=== PATIENT | male | born 1980 | race African-American/Black ===

== ENCOUNTER 2018-04-03 06:09 | Emergency (ER) | payer BC ==
[~2018-04-03] VITALS: Ht 180.3 cm; Wt 88.5 kg
[2018-04-03 06:13] VITALS: Ht 180.3 cm; Wt 88.5 kg
[2018-04-03 06:50] LABS: BASOPHIL % 1.9 % (0-2); PLATELET COUNT 229 x10^3mcL (130-400); RED CELL DISTRIBUTION WIDTH 13.3 % (11.5-14.5)
[2018-04-03 06:51] LABS: CARBON DIOXIDE 28.4 mmol/L (21-32); CHLORIDE SERUM 104 mmol/L (98-107); CREATININE SERUM 0.9 mg/dL (0.7-1.3); GFR1 > 60 mL/min; GLUCOSE SERUM 103 mg/dL (74-106); POTASSIUM SERUM 4.1 mmol/L (3.5-5.1); SODIUM SERUM 138 mmol/L (136-145)
[2018-04-03 06:55] LABS: ALBUMIN 3.8 g/dL (3.4-5.0); ALKALINE PHOSPHATASE 64 U/L (46-116); ALT/SGPT 62 U/L (16-63); AST/SGOT 33 U/L (15-37); BILIRUBIN TOTAL 0.4 mg/dL (0.20-1.00); TOTAL PROTEIN, SERUM 7.6 g/dL (6.4-8.2)
[2018-04-03 08:15] VITALS: BP 125/95
== END 2018-04-03 08:15 | disposition home or self-care (01) ==
LOC: ED 06:09
PROVIDERS: Emergency Medicine
DX: R07.89 Other chest pain (principal); K21.9 Gastro-esophageal reflux disease without esophagitis
CPT/HCPCS: 36415; 83880; Q0092